=== PATIENT | female | born 1950 | race Caucasian/White ===

== ENCOUNTER 2017-11-22 20:57 | Emergency (ER) | payer MEDICARE, MEDICAID ==
[2017-11-22 21:06] VITALS: BP 143/67
[2017-11-22] MEDS ORDERED: Acetaminophen TAB* 325 MG PO ONE (21:15)
--- NOTE | 2017-11-22 21:15 | ED ---
Lower Extremity - HPI Summary HPI Summary: 67-year-old female presents with left ankle pain today. She states she is walking and rolled her ankle. She is pain over the lateral aspect of her ankle. She denies any previous injury to the area. She denies any knee pain. She denies any other injury. She denies any numbness or tingling. She is able to place weight on the area but has pain. She hasn't taken anything for her pain. Her pain is 8 out of 10. Pain is worse with ambulation. - History of Current Complaint Chief Complaint: EDExtremityLower Stated Complaint: LT ANKLE INJURY Time Seen by Provider: 11/22/17 21:07 Pain Intensity: 10 - Allergies/Home Medications Allergies/Adverse Reactions: Allergies Allergy/AdvReac Type Severity Reaction Status Date / Time FRESH PAINT Allergy Intermediate Hives Uncoded 11/22/17 21:06 Home Medications: Home Medications Cholecalciferol TAB* [Vitamin D TAB*] 1,000 unit PO DAILY 11/22/17 [History Confirmed 11/22/17] PMH/Surg Hx/FS Hx/Imm Hx Endocrine/Hematology History: Denies: Hx Anticoagulant Therapy, Hx Diabetes Cardiovascular History: Reports: Hx Angina Denies: Hx Congestive Heart Failure, Hx Coronary Artery Disease, Hx Hypercholesterolemia, Hx Hypertension, Hx Myocardial Infarction, Hx Valvular Heart Disease Respiratory History: Reports: Hx Asthma - HX- NO MEDICATION FOR GI History: Reports: Hx Gastroesophageal Reflux Disease, Hx Ulcer - HX OF -2 YEARS AGO Sensory History: Reports: Hx Cataracts - BILATERAL, Hx Contacts or Glasses - GLASSES Denies: Hx Hearing Aid Opthamlomology History: Reports: Hx Cataracts - BILATERAL, Hx Contacts or Glasses - GLASSES Psychiatric History: Reports: Hx Anxiety - NO MEDICATION FOR, Hx Depression - NO MEDICATION FOR - Cancer History Hx Chemotherapy: No Hx Radiation Therapy: No - Surgical History Surgery Procedure, Year, and Place: UTERUS REMOVED-2002 [facility]ALL[facility]- 2007-[facility]. [id number] Hx Anesthesia Reactions: Yes - NAUSEA AND VOMITING Infectious Disease History: No Infectious Disease History: Denies: Hx Clostridium Difficile, Hx Hepatitis, Hx Human Immunodeficiency Virus (HIV), Hx of Known/Suspected MRSA, Hx Shingles, Hx Tuberculosis, History Other Infectious Disease, Traveled Outside the [place] in Last 30 Days - Family History Known Family History: Positive: None - Questioned - denies any, Unknown - Social History Alcohol Use: None Substance Use Type: Reports: None Smoking Status (MU): Never Smoked Tobacco Review of Systems Negative: Fever Negative: Chest Pain Negative: Shortness Of Breath Positive: Myalgia - left ankle pain All Other Systems Reviewed And Are Negative: Yes Physical Exam Triage Information Reviewed: Yes Vital Signs On Initial Exam: Initial Vitals Temp Pulse Resp BP Pulse Ox 98.5 F 82 16 143/67 100 11/22/17 21:02 11/22/17 21:02 11/22/17 21:02 11/22/17 21:02 11/22/17 21:02 Vital Signs Reviewed: Yes Appearance: Positive: Well-Appearing Skin: Positive: Warm, Dry Head/Face: Positive: Normal Head/Face Inspection Eyes: Positive: Normal, Conjunctiva Clear Respiratory/Lung Sounds: Positive: Clear to Auscultation, Breath Sounds Present Cardiovascular: Positive: Normal, RRR Musculoskeletal: Positive: Limited @ - left ankle, Edema Left - lateral aspect of ankle, Other - tenderness over lateral aspect of left ankle, good pulses, capillary refill<2 secs, ecchymosis to lateral aspect left ankle, nontender knee , sensation grossly intact Neurological: Positive: Normal Psychiatric: Positive: Normal Diagnostics - Vital Signs Vital Signs Temp Pulse Resp BP Pulse Ox 11/22/17 21:02 98.5 F 82 16 143/67 100 - Laboratory Lab Statement: Any lab studies that have been ordered have been reviewed, and results considered in the medical decision making process. - Radiology ankle Xray Interpretation: No Acute Changes Radiology Interpretation Completed By: Radiologist Lower Extremity Course/Dx - Course Course Of Treatment: 67-year-old female presents with left ankle pain today. She states she is walking and rolled her ankle. She is pain over the lateral aspect of her ankle. She denies any previous injury to the area. She denies any knee pain. She denies any other injury. She denies any numbness or tingling. She is able to place weight on the area but has pain. She hasn't taken anything for her pain. Her pain is 8 out of 10. Pain is worse with ambulation. On exam has tenderness over the lateral aspect of left ankle. Neurovascularly intact. X-ray normal. Will treat with RICE. Patient understands agrees with plan. - Diagnoses Differential Diagnosis/HQI/PQRI: Positive: Fracture (Closed), Sprain, Strain Provider Diagnoses: Left ankle injury Discharge - Sign-Out/Discharge Documenting (check all that apply): Discharge - Discharge Plan Condition: Good Disposition: HOME Patient Education Materials: Ankle Sprain (ED) Referrals: Claudia Hammer MD [Primary Care Provider] - Additional Instructions: Stay off ankle as much as possible Ice, elevate, keep in JW Tylenol every 6 hours for pain Follow up with primary if no improvement Return to ED if develop or any new or worsening symptoms - Billing Disposition and Condition Condition: GOOD Disposition: HOME
--- NOTE | 2017-11-22 21:53 | RAD ---
HISTORY: Left ankle pain COMPARISONS: None VIEWS: 3, Frontal, lateral, and oblique views of the left ankle FINDINGS: BONE DENSITY: Normal. BONES: There is no displaced fracture. JOINTS: There is no arthropathy. ALIGNMENT: There is no dislocation. SOFT TISSUES: Unremarkable. OTHER FINDINGS: None. IMPRESSION: NO ACUTE OSSEOUS INJURY. IF SYMPTOMS PERSIST, RECOMMEND REPEAT IMAGING.
== END 2017-11-22 22:07 | disposition home or self-care (01) ==
LOC: ED 20:57
DX: S99.912A Unspecified injury of left ankle, initial encounter (principal); X58.XXXA Exposure to other specified factors, initial encounter; Y92.9 Unspecified place or not applicable; I20.9 Angina pectoris, unspecified; K21.9 Gastro-esophageal reflux disease without esophagitis
CPT/HCPCS: 99281; A9270-GY

== ENCOUNTER 2019-05-16 12:49 | Emergency (ER) | payer MEDICARE, MEDICAID ==
--- NOTE | 2019-05-16 13:02 | ED ---
Abdominal Pain/Female - HPI Summary HPI Summary: 68 year old F presenting to [facility] from her primary care provider's office, requesting a CT Abdomen/Pelvis, accompanied by complains of LLQ abdominal pain rated 7/10 in severity x2 days. Denies nausea, vomiting, diarrhea and constipation. Symptoms aggravated by nothing. Symptoms alleviated by nothing. PMHx: anxiety for which she takes Xanax. Abdominal surgical hx: appendectomy, cholecystectomy, hysterectomy. - History of Current Complaint Chief Complaint: EDAbdPain Stated Complaint: ABD PAIN Time Seen by Provider: 05/16/19 12:57 Hx Obtained From: Patient Onset/Duration: Lasting Days - 2, Still Present Timing: Constant Pain Intensity: 7 Pain Scale Used: 0-10 Numeric Aggravating Factor(s): Nothing Alleviating Factor(s): Nothing Associated Signs and Symptoms: Negative: Constipation, Nausea, Vomiting, Diarrhea Allergies/Adverse Reactions: Allergies Allergy/AdvReac Type Severity Reaction Status Date / Time FRESH PAINT Allergy Intermediate Hives Uncoded 05/16/19 13:02 Home Medications: Home Medications ALPRAZolam [Alprazolam] 0.25 mg PO SEE INSTRUCTIONS PRN 05/16/19 [History Confirmed 05/16/19] PMH/Surg Hx/FS Hx/Imm Hx Endocrine/Hematology History: Denies: Hx Anticoagulant Therapy, Hx Diabetes Cardiovascular History: Reports: Hx Angina Denies: Hx Congestive Heart Failure, Hx Coronary Artery Disease, Hx Hypercholesterolemia, Hx Hypertension, Hx Myocardial Infarction, Hx Valvular Heart Disease Respiratory History: Reports: Hx Asthma - HX- NO MEDICATION FOR GI History: Reports: Hx Gastroesophageal Reflux Disease, Hx Ulcer - HX OF -2 YEARS AGO Musculoskeletal History: Denies: Hx Scoliosis Sensory History: Reports: Hx Cataracts - BILATERAL, Hx Contacts or Glasses - GLASSES Denies: Hx Hearing Aid Opthamlomology History: Reports: Hx Cataracts - BILATERAL, Hx Contacts or Glasses - GLASSES Neurological History: Denies: Hx Headaches, Other Neuro Impairments/Disorders Psychiatric History: Reports: Hx Anxiety - NO MEDICATION FOR, Hx Depression - NO MEDICATION FOR - Cancer History Hx Chemotherapy: No Hx Radiation Therapy: No - Surgical History Surgery Procedure, Year, and Place: UTERUS REMOVED-2002 [facility]- 2007-[facility] [id number] Hx Anesthesia Reactions: Yes - NAUSEA AND VOMITING Infectious Disease History: No Infectious Disease History: Denies: Hx Clostridium Difficile, Hx Hepatitis, Hx Human Immunodeficiency Virus (HIV), Hx of Known/Suspected MRSA, Hx Shingles, Hx Tuberculosis, History Other Infectious Disease, Traveled Outside the [place] in Last 30 Days - Family History Known Family History: Positive: Other - NEG: Breast CA Negative: Cardiac Disease - Social History Alcohol Use: None Substance Use Type: Reports: None Smoking Status (MU): Never Smoked Tobacco Review of Systems Negative: Fever Positive: Abdominal Pain - LLQ. Negative: Vomiting, Diarrhea, Nausea, Other - constipation All Other Systems Reviewed And Are Negative: Yes Physical Exam - Summary Physical Exam Summary: VITAL SIGNS: Reviewed. GENERAL: Patient is a well-developed and nourished female who is lying comfortable in the stretcher. Patient is not in any acute respiratory distress. HEAD AND FACE: Normocephalic and atraumatic. EYES: PERRLA, EOMI x 2, No injected conjunctiva. EARS: Hearing grossly intact. Ear canals and tympanic membranes are WNL. MOUTH: Oropharynx within normal limits. NECK: Supple, trachea is midline, no adenopathy, no JVD. CHEST: Symmetric, no tenderness at palpation. LUNGS: Clear to auscultation bilaterally. No wheezing or crackles. CVS: RRR, S1 and S2 present, no murmurs or gallops appreciated. ABDOMEN: LLQ tenderness, some guarding, no rebound EXTREMITIES: FROM in all major joints, no edema, no cyanosis or clubbing. NEURO: Alert and oriented x 3. No acute neurological deficits. Speech is normal. SKIN: Dry and warm. Triage Information Reviewed: Yes Vital Signs On Initial Exam: Initial Vitals Temp Pulse Resp BP Pulse Ox 97.3 F 78 16 154/93 98 05/16/19 12:51 05/16/19 12:51 05/16/19 12:51 05/16/19 12:51 05/16/19 12:51 Vital Signs Reviewed: Yes Diagnostics - Vital Signs Vital Signs Temp Pulse Resp BP Pulse Ox 05/16/19 12:51 97.3 F 78 16 154/93 98 - Laboratory Result Diagrams: 05/16/19 13:21 05/16/19 13:21 Lab Statement: Any lab studies that have been ordered have been reviewed, and results considered in the medical decision making process. - CT Abdomen/Pelvis CT Interpretation Completed By: Radiologist Summary of CT Findings: No abnormal masses or fluid collections are identified. ED physician has reviewed this report. - EKG 1323 Cardiac Rate: NL - 69 BPM EKG Rhythm: Sinus Rhythm Summary of EKG Findings: Sinus rhythm [address] elevations. ST depressions in the lateral and anterior leads Re-Evaluation - Re-Evaluation First Eval Re-Evaluation Time: 16:02 Comment: patient informed of imaging and lab results. patient and family are agreeable to discharge Abdominal Pain Fem Course/Dx - Course Course Of Treatment: This patient is a 68-year-old female who presents to the emergency department after she was sent from Dr. Prieto's office with a chief complaint of having left lower quadrant abdominal pain. Shes been having this pain for the last couple days, denies any nausea, vomiting, diarrhea, constipation. Abdominopelvic CT impression: No abnormal masses or fluid collections are identified. Blood work without any significant abnormality. Urinalysis is negative for UTI. The patient did not require any pain medications. I did not find any abnormal labs, the CT is within normal limits. Therefore, the patient will be discharged home with follow-up with primary care physician. I discussed all the findings and test results with the patient. Patient will be discharged home with f/u of PCP. Patient was instructed to return to the emergency room immediately if any of the symptoms return or worsen. She was explained the possibility of an early abdominal pathology which was not detected at this time despite the physical exam and testing. She understand and agree. Abdominal exam before discharge: Soft, NT. No signs of distention. BS present. No rebound no guarding, and no masses palpated. Patient is alert and oriented and hemodynamically stable. Patient is to follow up with primary care physician in the next 2 to 3 days. Patient agrees and understands. - Diagnoses Differential Diagnosis: Positive: Bowel Obstruction, Constipation, Diverticulitis, Ovarian Cyst, Renal Colic, Urinary Tract Infection Provider Diagnoses: Lower abdominal pain Discharge ED - Sign-Out/Discharge Documenting (check all that apply): Patient Departure - Discharge Patient Received Moderate/Deep Sedation with Procedure: No - Discharge Plan Condition: Stable Disposition: HOME Patient Education Materials: Abdominal Pain (ED) Referrals: Claudia Hammer MD [Primary Care Provider] - 3 Days Additional Instructions: Follow up with your primary care provider in 3 days. RETURN TO EMERGENCY DEPARTMENT FOR NEW OR WORSENING SYMPTOMS. - Billing Disposition and Condition Condition: STABLE Disposition: Home - Attestation Statements Document Initiated by Leahibe: Yes Documenting Scribe: Gabbi Albert Provider For Whom Yoandy is Documenting (Include Credential): Jorge Stewart MD Scribe Attestation: Gabbi Frankel, scribed for Jorge Stewart MD on 05/20/19 at 1129. Scribe Documentation Reviewed: Yes Provider Attestation: The documentation as recorded by the Gabbi lazo accurately reflects the service I personally performed and the decisions made by me, Jorge Stewart MD Status of Scribe Document: Viewed
[2019-05-16] MEDS ORDERED: NS 0.9% 1000 ML** 1,000 ML IV ONE (13:09)
--- OUTSIDE RECORDS SUMMARY | 2019-05-16 13:38 | XMS REPORT | Continuity of Care Document ---
:1950 External Reference #:[id number] Author Name Ajith Cobb M.D. Address [address] [place] [address] Care Team Providers Name Role Phone Harman THACKER, Claudia Care Team Information Rn Hemodialysis Charge [phone] Problems Active Problems Provider Date Presence of intraocular lens Ajith Cobb M.D. Onset: 10/28/2016 Vitreous degeneration Ajith Cobb M.D. Onset: 10/28/2016 Convalescence after surgery Ajith Cobb M.D. Onset: 05/18/2016 Degenerative progressive high myopia Silvesrte Castañeda O.D. Onset: 05/01/2015 Presbyopia Silvestre Castañeda O.D. Onset: 10/10/2014 Nuclear senile cataract Silvsetre Castañeda O.D. Onset: 10/10/2014 Retinal neovascularization Silvestre Castañeda O.D. Onset: 10/10/2014 Degenerative progressive high myopia Silvestre Castañeda O.D. Onset: 10/10/2014 Social History Type Date Description Comments Sex Unknown ETOH Use Never used alcohol Tobacco Use Start: Unknown Patient has never smoked Smoking Status Reviewed: 04/25/19 Patient has never smoked Allergies, Adverse Reactions, Alerts Description No Known Drug Allergies Medications Active Medications SIG Qnty Indications Ordering Provider Date Albuterol Sulfate Inhale The Contents Unknown Of 1 Vial Via (2.5mg/3ML) 0.083% Nebulizer 3 Times A Nebulizer Day Immunizations Description No Information Available Vital Signs Date Vital Result Comment 04/25/2019 2:07pm Intraocular Pressure Right Eye 17 mmHg Intraocular Pressure Left Eye 21 mmHg 07/27/2017 2:09pm Intraocular Pressure Right Eye 17 mmHg Intraocular Pressure Left Eye 19 mmHg Results Description No Information Available Procedures Date Code Description Status 04/25/2019 76584 Fundus Photography W/Interpretation & Report Completed 04/25/2019 84846 Ophthalmoscopy Subsequent Completed 04/25/2019 81216 Eye Exam Est Comprehensive Completed Medical Devices Description No Information Available Encounters Description No Information Available Assessments Date Code Description Provider 04/25/2019 H44.23 Degenerative myopia, bilateral Ajith Cobb M.D. 04/25/2019 Z96.1 Presence of intraocular lens Ajith Cobb M.D. Plan of Treatment 04/25/2019 - Ajith Cobb M.D.H44.23 Degenerative myopia, prskroctdI46.1 Presence of intraocular lensFollow up:1 yr full Functional Status Description No Information Available Mental Status Description No Information Available Referrals Description No Information Available
--- OUTSIDE RECORDS SUMMARY | 2019-05-16 13:38 | XMS REPORT | Continuity of Care Document ---
:1950 External Reference #:[id number] Author Name Moira Pineda MD (transmitted by agent of provider Nicole Garza) Address [address] [facility] [address], [place] [address] Care Team Providers Name Role Phone Claudia Hammer MD - Internal Care Team Information [employer] [facility] Problems Active Problems Provider Date Difficulty breathing Iliana Leos D.O. Onset: 01/25/2012 Difficulty breathing Iliana Leos D.O. Onset: 02/03/2012 Insomnia Eufemia Deleon MD Onset: 09/26/2016 Social History Type Date Description Comments Sex Unknown Tobacco Use Start: Unknown Never Smoked Cigarettes ETOH Use Never used alcohol Recreational Drug Use Never Used Drugs Tobacco Use Start: Unknown Patient has never smoked Smoking Status Reviewed: 05/01/19 Patient has never smoked Exercise Type/Frequency Does not exercise Allergies, Adverse Reactions, Alerts Description No Known Drug Allergies Medications Active Medications SIG Qnty Indications Ordering Provider Date Ventolin HFA Unknown 108(90Base) mcg/Act Aerosol Immunizations CPT Code Status Date Vaccine Lot # [id number] Given 06/22/2009 Influenza Virus Vaccine, Pandemic Formulation [id number] Given 06/22/2009 Administration Swine Flu Shot Vital Signs Date Vital Result Comment 05/01/2019 11:12am Heart Rate 90 /min Respiratory Rate 16 /min Body Temperature 97.2 F 09/26/2016 8:07am Height 66 inches 5'6" Weight 148.00 lb Heart Rate 67 /min BP Systolic 124 mmHg BP Diastolic 76 mmHg Respiratory Rate 14 /min O2 % BldC Oximetry 95 % BMI (Body Mass Index) 23.9 kg/m2 Results Description No Information Available Procedures Date Code Description Status 12/16/2009 01874054 Mammogram Completed 07/08/2009 86336576 Mammogram Completed Medical Devices Description No Information Available Encounters Description No Information Available Assessments Description No Information Available Plan of Treatment Future Appointment(s):05/02/2019 10:30 am - [facility]09/26/2016 - Eufemia Deleon MDG47.00 Insomnia, unspecifiedFollow up:PRN Functional Status Description No Information Available Mental Status Description No Information Available Referrals Description No Information Available
[2019-05-16 13:51] LABS: ABS Eosinophils 0.1 10^3/ul (0-0.6); ABS Lymphocytes 1.3 10^3/ul (1.0-4.8); ABS Monocytes 0.3 10^3/ul (0-0.8); ABS Neutrophils 3.7 10^3/ul (1.5-7.7); Eosinophil % 1.2 %; Hematocrit 38 % (35-47); Hemoglobin 12.6 g/dL (12.0-16.0); Lymphocyte % 23.8 %; Mean Corpuscular HGB Conc 33 g/dL (31-36); Mean Corpuscular Hemoglobin 30 pg (27-31); Mean Corpuscular Volume 91 fL (80-97); Nucleated Red Blood Cells % 0.1; Platelet Count 240 10^3/uL (150-450); Red Blood Count 4.18 10^6 /uL (3.70-4.87); Red Cell Distribution Width 13 % (10-15); White Blood Count 5.5 10^3/uL (3.5-10.8)
[2019-05-16 14:06] LABS: Albumin 4.1 g/dL (3.2-5.2); Albumin/Globulin Ratio 1.5 (1-3); BUN/Creatinine Ratio 22.5 (8-20); C Reactive Protein 2.95 mg/L (<8.01); Calcium 9.1 mg/dL (8.6-10.3); EGFR African American 98.8 (>60); EGFR Non-African American 81.6 (>60); Globulin 2.8 g/dL (2-4); Potassium 4.2 mmol/L (3.5-5.0); Total Bilirubin 0.5 mg/dL (0.2-1.0); Total Protein 6.9 g/dL (6.4-8.9)
[2019-05-16] MEDS ORDERED: Iohexol 300* (CONTRAST) 10 ML SDV IV ONE (14:50)
[2019-05-16 15:08] LABS: Urine Appearance Clear; Urine Bacteria Absent (Absent); Urine Bilirubin Negative (Negative); Urine Blood 1+ (Negative); Urine Color Straw; Urine Glucose Negative (Negative); Urine Ketones Negative (Negative); Urine Nitrite Negative (Negative); Urine Protein Negative (Negative); Urine Red Blood Cell Trace(0-2/hpf) (Absent); Urine Specific Gravity 1.003 (1.010-1.030); Urine Urobilinogen Negative (Negative); Urine White Blood Cell Absent (Absent)
[2019-05-16 16:09] VITALS: BP 144/72
== END 2019-05-16 16:04 | disposition home or self-care (01) ==
LOC: ED 12:49
DX: R10.32 Left lower quadrant pain (principal); F41.9 Anxiety disorder, unspecified; Z79.899 Other long term (current) drug therapy; Z90.710 Acquired absence of both cervix and uterus; Z90.49 Acquired absence of other specified parts of digestive tract; M47.27 Other spondylosis with radiculopathy, lumbosacral region; M16.0 Bilateral primary osteoarthritis of hip; R03.0 Elevated blood-pressure reading, without diagnosis of hypertension
CPT/HCPCS: G0463; G8420; G8427; G8730; G8783; G8950; Q9967

== ENCOUNTER 2019-08-22 16:17 | Emergency (ER) | payer MEDICARE, MEDICAID ==
--- OUTSIDE RECORDS SUMMARY | 2019-08-22 16:30 | XMS REPORT | Continuity of Care Document ---
:1950 External Reference #:[id number] Author Name Clary Harmon Care Team Providers Name Role Phone Claudia Hammer MD - Internal Care Team Information [employer] Consultant Medicine Problems Active Problems Provider Date Difficulty breathing Iliana Leos D.O. Onset: 01/25/2012 Difficulty breathing Iilana Leos D.O. Onset: 02/03/2012 Insomnia Eufemia Deleon MD Onset: 09/26/2016 Lumbar radiculopathy Saul Haile MD Onset: 05/02/2019 Injury of hip region aSul Haile MD Onset: 05/02/2019 Social History Type Date Description Comments Sex Unknown Tobacco Use Start: Unknown Never Smoked Cigarettes ETOH Use Never used alcohol Recreational Drug Use Never Used Drugs Tobacco Use Start: Unknown Patient has never smoked Smoking Status Reviewed: 05/02/19 Patient has never smoked Exercise Type/Frequency Does not exercise Allergies, Adverse Reactions, Alerts Description No Known Drug Allergies Medications Active Medications SIG Qnty Indications Ordering Provider Date Diclofenac Sodium take 1 tablet 60tabs M54.16 aSul Haile MD 05/02/2019 75mg twice a day with Tablets DR fifi Candelario HFA Unknown 108(90Base) mcg/Act Aerosol Immunizations CPT Code Status Date Vaccine Lot # [id number] Given 06/22/2009 Influenza Virus Vaccine, Pandemic Formulation [id number] Given 06/22/2009 Administration Swine Flu Shot Vital Signs Date Vital Result Comment 05/02/2019 10:50am Height 66 inches 5'6" Weight 153.00 lb Heart Rate 60 /min BP Systolic 122 mmHg BP Diastolic 80 mmHg Pain Level 3 BMI (Body Mass Index) 24.7 kg/m2 05/01/2019 11:12am Heart Rate 90 /min Respiratory Rate 16 /min Body Temperature 97.2 F Results Description No Information Available Procedures Date Code Description Status 12/16/2009 34186992 Mammogram Completed 07/08/2009 30021270 Mammogram Completed Medical Devices Description No Information Available Encounters Type Date Location Provider Dx Diagnosis Office Visit 05/02/2019 [facility] Saul Haile MD M54.16 Radiculopathy, 10:30a at [place] lumbar region S76.212A Strain of adductor musc/fasc/tend left thigh, init Office Visit 05/01/2019 11:00a Surgical Moira Pineda K62.89 Other specified [facility] diseases of anus and rectum Assessments Date Code Description Provider 05/02/2019 M54.16 Radiculopathy, lumbar region Saul Haile MD 05/02/2019 S76.212A Strain of adductor muscle, fascia and tendon of Saul Haile MD left thigh, initial encounter 05/01/2019 K62.89 Other specified diseases of anus and rectum Moiar Pineda MD Plan of Treatment 05/02/2019 - Saul Haile MDM54.16 Radiculopathy, lumbar regionNew Medication: Diclofenac Sodium 75 mg - take 1 tablet twice a day with foodNew Therapy: Physical TherapyReferral:Prabhjot Prieto MD, Sports Medicine:Family prFollow up: Follow up: 6 weeks or as hztzodW42.212A Strain of adductor muscle, fascia and tendon of left thigh, initial encounter Functional Status Description No Information Available Mental Status Description No Information Available Referrals Refer to Reason for Referral Status Appt Date Prabhjot Prieto MD lumbar radiculopathy Sent [address] [place] [address] [address] [place] [address] [phone]
--- NOTE | 2019-08-22 20:32 | ED ---
GI/ HPI - HPI Summary HPI Summary: This patient is a 68 year old female presenting to [facility] accompanied by her daughter with a chief complaint of hematuria since this morning. She states she is urinating only red blood with clots. She states the same problem happened a couple weeks ago. She reports back pain. She states she had chills in her feet this morning. She denies nausea/vomiting. She reports burning when she pees. She states she has not taken any medications. She has a Hx of HLD. She states her Appendix, uterus and gallbladder have previously been removed. - History of Current Complaint Chief Complaint: EDUrogenitalProblems Time Seen by Provider: 08/22/19 20:21 Stated Complaint: BLOOD IN URINE PER PT DAUGHTER Hx Obtained From: Patient, Family/Weeder Onset/Duration: Started Hours Ago Pain Intensity: 6 - Allergy/Home Medications Allergies/Adverse Reactions: Allergies Allergy/AdvReac Type Severity Reaction Status Date / Time [place] Allergy Intermediate Hives Uncoded 05/16/19 13:02 PMH/Surg Hx/FS Hx/Imm Hx Endocrine/Hematology History: Denies: Hx Anticoagulant Therapy, Hx Diabetes Cardiovascular History: Reports: Hx Angina Denies: Hx Congestive Heart Failure, Hx Coronary Artery Disease, Hx Hypercholesterolemia, Hx Hypertension, Hx Myocardial Infarction, Hx Valvular Heart Disease Respiratory History: Reports: Hx Asthma - HX- NO MEDICATION FOR GI History: Reports: Hx Gastroesophageal Reflux Disease, Hx Ulcer - HX OF -2 YEARS AGO Musculoskeletal History: Denies: Hx Scoliosis Sensory History: Reports: Hx Cataracts - BILATERAL, Hx Contacts or Glasses - GLASSES Denies: Hx Hearing Aid Opthamlomology History: Reports: Hx Cataracts - BILATERAL, Hx Contacts or Glasses - GLASSES Neurological History: Denies: Hx Headaches, Other Neuro Impairments/Disorders Psychiatric History: Reports: Hx Anxiety - NO MEDICATION FOR, Hx Depression - NO MEDICATION FOR - Cancer History Hx Chemotherapy: No Hx Radiation Therapy: No - Surgical History Surgery Procedure, Year, and Place: UTERUS REMOVED-2002 [place] GALL[facility]- [place] [id number] Hx Anesthesia Reactions: Yes - NAUSEA AND VOMITING Infectious Disease History: No Infectious Disease History: Denies: Hx Clostridium Difficile, Hx Hepatitis, Hx Human Immunodeficiency Virus (HIV), Hx of Known/Suspected MRSA, Hx Shingles, Hx Tuberculosis, History Other Infectious Disease, Traveled Outside the [place] in Last 30 Days - Family History Known Family History: Positive: Other - NEG: Breast CA Negative: Cardiac Disease - Social History Alcohol Use: None Substance Use Type: Reports: None Smoking Status (MU): Never Smoked Tobacco Review of Systems Positive: Chills Negative: Vomiting, Diarrhea, Nausea Positive: burning, hematuria Positive: Other - Back pain All Other Systems Reviewed And Are Negative: Yes Physical Exam - Summary Physical Exam Summary: General: Well-developed, Well-nourished FEMALE. No acute distress. HEENT: Normocephalic, Atraumatic. Eyes: Conjuctiva normal, PERRL. Oropharynx: Clear, mucous membranes moist, (-) exudates. Neck: Soft, FROM, (-) lymphadenopathy, (-) thyromegaly, (-) JVD. Cardiovascular: Normal sinus rhythm, (-) murmur. Lungs: Clear to auscultation bilaterally (-) wheezes, (-) rales, (-) rhonchi. Abdomen: Soft, mild suprapubic tenderness, non-distended, (-) organomegaly, normal bowel sounds. Back: (-) CVA tenderness Extremities: No edema. Skin: Warm, dry, (-) rash. Neuro: Alert and oriented x3, no focal deficits. Psychiatric: Mood normal, affect normal. Triage Information Reviewed: Yes Vital Signs On Initial Exam: Initial Vitals Temp Pulse Resp BP Pulse Ox 99.2 F 74 16 144/79 98 08/22/19 16:21 08/22/19 16:21 08/22/19 16:21 08/22/19 16:21 08/22/19 16:21 Vital Signs Reviewed: Yes Procedures - Sedation Patient Received Moderate/Deep Sedation with Procedure: No Diagnostics - Vital Signs Vital Signs Temp Pulse Resp BP Pulse Ox 08/22/19 18:33 99.1 F 69 18 165/76 96 08/22/19 16:21 99.2 F 74 16 144/79 98 - Laboratory Result Diagrams: 08/22/19 20:41 08/22/19 20:41 Lab Statement: Any lab studies that have been ordered have been reviewed, and results considered in the medical decision making process. - CT Abd/Pel CT Interpretation Completed By: Radiologist Summary of CT Findings: 1. No visible renal, ureteral or bladder calculi. 2. There is a slight increase in urinary bladder wall thickening which may be due to minimal urine volume but cannot exclude mild cystitis. ED Provider has reviewed this report. GIGU Course/Dx - Course Course Of Treatment: 68 year old female presents from home with hematuria started this am. less now. complains of suprapubic tenderness. no fever/v/d. had this once before a few year ago. exam showed suprapubic tenderness. diagnostics showed uti wihtout nephrolithiasis. started on keflex and encouraged po fluids. f/u with urology. follow up sooner for any worsening symptoms - Diagnoses Provider Diagnoses: Urinary tract infection, Hematuria Discharge ED - Sign-Out/Discharge Documenting (check all that apply): Patient Departure - Discharge - Discharge Plan Condition: Stable Disposition: HOME Prescriptions: Cephalexin CAP* [Keflex CAP*] 500 mg PO TID #30 cap Patient Education Materials: Urinary Tract Infection in Women (ED) Referrals: Agustin Castellanos MD [Medical Doctor] - Additional Instructions: Return to ED with new or worsening symptoms. - Billing Disposition and Condition Condition: STABLE Disposition: Home - Attestation Statements Document Initiated by Yoandy: Yes Documenting Scribe: Fabricio Maier Provider For Whom Yoandy is Documenting (Include Credential): gNozi Gary MD Scribe Attestation: Fabricio Frankel scribed for Ngozi Gary MD on 08/22/19 at 2321. Scribe Documentation Reviewed: Yes Provider Attestation: The documentation as recorded by the Fabricio lazo accurately reflects the service I personally performed and the decisions made by me, Ngozi Gary MD Status of Scribe Document: Viewed
[2019-08-22] MEDS ORDERED: NS 0.9% 1000 ML** 1,000 ML IV ONE (20:46)
[2019-08-22 20:49] LABS: ABS Basophils 0.1 10^3/ul (0-0.2); ABS Eosinophils 0.1 10^3/ul (0-0.6); ABS Lymphocytes 1.6 10^3/ul (1.0-4.8); ABS Monocytes 0.5 10^3/ul (0-0.8); ABS Neutrophils 5.3 10^3/ul (1.5-7.7); Eosinophil % 1.7 %; Hematocrit 38 % (35-47); Hemoglobin 12.4 g/dL (12.0-16.0); Lymphocyte % 21.4 %; Mean Corpuscular HGB Conc 33 g/dL (31-36); Mean Corpuscular Hemoglobin 30 pg (27-31); Mean Corpuscular Volume 91 fL (80-97); Platelet Count 254 10^3/uL (150-450); Red Blood Count 4.15 10^6 /uL (3.70-4.87); Red Cell Distribution Width 14 % (10-15); White Blood Count 7.6 10^3/uL (3.5-10.8)
[2019-08-22 20:49] LABS: Urine Appearance Cloudy; Urine Bilirubin Negative (Negative); Urine Blood 2+ (Negative); Urine Color Yellow; Urine Glucose Negative (Negative); Urine Ketones Negative (Negative); Urine Nitrite Negative (Negative); Urine Protein Negative (Negative); Urine Specific Gravity 1.008 (1.010-1.030); Urine Urobilinogen Negative (Negative)
[2019-08-22 20:52] LABS: Urine Bacteria Absent (Absent); Urine Red Blood Cell 3+(>10/hpf) (Absent); Urine Squamous Epithelial Cell Present (Absent); Urine White Blood Cell 3+(>20/hpf) (Absent)
[2019-08-22 21:05] LABS: Albumin 3.9 g/dL (3.2-5.2); Albumin/Globulin Ratio 1.5 (1-3); BUN/Creatinine Ratio 21.5 (8-20); Calcium 8.8 mg/dL (8.6-10.3); EGFR African American 109.4 (>60); EGFR Non-African American 90.4 (>60); Globulin 2.6 g/dL (2-4); Potassium 4.1 mmol/L (3.5-5.0); Total Bilirubin 0.5 mg/dL (0.2-1.0); Total Protein 6.5 g/dL (6.4-8.9)
[2019-08-22] MEDS ORDERED: cefTRIAXone(*) 2 GM in NS 0.9% 100 ML* 100 ML IVPB ONE (21:28)
[2019-08-22 23:09] VITALS: BP 137/78
--- NOTE | 2019-08-25 10:13 | ED ---
Imaging and Labs Follow Up Follow Up Type: Labs/Cultures Labs/Culture Result: Urine culture growing 75-100k e. coli. Patient Communication/Plan: Pt. treated with keflex which bacteria is susceptible to based on culture. No change in treatment needed. Provider Diagnoses: Urinary tract infection, Hematuria
== END 2019-08-22 23:02 | disposition home or self-care (01) ==
LOC: ED 16:17
DX: N39.0 Urinary tract infection, site not specified (principal); B96.20 Unspecified Escherichia coli [E. coli] as the cause of diseases classified elsewhere; R31.9 Hematuria, unspecified
CPT/HCPCS: 36415; 74176; 80053; 81003; 81015; 83605; 85025; 87077; 87086; 87186; 96361; 96365; 99282; J0696